=== PATIENT | female | born 1975 | race Caucasian/White ===

== ENCOUNTER 2020-12-11 17:24 | Emergency (ER) | payer OTHER ==
[~2020-12-11 17:24] MED LIST: CLEOCIN300 MG PO; VOLTAREN **OUT75 MG PO
[2020-12-11 18:05] LABS: BASOPHIL 0.4 % (0-2); EOSINOPHIL 2.3 % (0-5); HCT 39.8 % (37.0-47.0); HGB 13.3 g/dl (12.5-16.0); LYMPHOCYTE 22.6 % (15-48); MCH 29.2 pg (25.0-31.0); MCHC 33.4 g/dL (32.0-36.0); MCV 87.5 fL (78.0-100.0); MONOCYTE 7.1 % (0-12); NEUTROPHIL 67.3 % (41-80); NRBC 0; PLT 190 K/uL (150-400); RBC 4.55 M/uL (4.20-5.40); RDW 12.7 % (11.5-14.0); WBC 7.4 K/uL (4.0-10.5)
[2020-12-11 18:23] LABS: ALBUMIN 3.5 g/dL (3.4-5.0); BILIRUBIN - TOTAL 0.8 mg/dL (0.2-1.0); CREATININE 0.63 mg/dL (0.51-0.95); GLOBULIN (CALCULATION) 3.8 g/dL; POTASSIUM 3.2 mmol/L (3.5-5.1); TOTAL PROTEIN 7.3 g/dL (6.4-8.2)
[2020-12-11] MEDS ORDERED: NARCAN4 MG (18:33)
[2020-12-11] MEDS ORDERED: PHENERGAN25 M1 PO (18:33)
== END 2020-12-11 18:49 | disposition home or self-care (01) ==
LOC: FER 17:24
PROVIDERS: Emergency Medicine
DX: T40.1X1A Poisoning by heroin, accidental (unintentional), initial encounter (principal); F11.20 Opioid dependence, uncomplicated; Z88.0 Allergy status to penicillin
CPT/HCPCS: 36415; 80053; 85025; 99284; J2310